=== PATIENT | male | born 1940 | race Caucasian/White ===

== ENCOUNTER 2021-10-14 09:02 | Emergency (ER) | payer MEDICARE, OTHER ==
--- NOTE | 2021-10-14 09:44 | ERPHSYRPT ---
- History of Present Illness Time Seen by Provider: 10/14/21 09:15 Source: patient Exam Limitations: no limitations Patient Subjective Stated Complaint: Pt states that for a couple of days he hs been feeling fatigued and has had a cough Triage Nursing Assessment: Pt brought self to the ER, hypertensive, denies pain, no difficulty walking to the room, pulses normal, skin n/w/d, doesn't appear to be in any distress Physician History: Patient is a 81-year-old male presents to our ED for evaluation of a cough and fatigue that has been ongoing for approximately 2 days. No associated nausea vomiting or diaphoresis. No rash. No diarrhea. No fever. Patient has been eating normally. No obvious sick contacts. Symptoms are mild to moderate in intensity. No specific worsening or improving factors. Patient denies chest pain and shortness of breath. He voices no other complaints or concerns at this time. Patient is vaccinated however he is requesting a Covid test. Timing/Duration: day(s) (2 days) Severity: moderate Modifying Factors: Improves With: nothing Associated Symptoms: denies symptoms Allergies/Adverse Reactions: No Known Drug Allergies Allergy (Verified 10/14/21 09:26) Home Medications: Amlodipine Besylate 5 mg [Norvasc 5 mg] 5 mg PO BID 10/14/21 [History] Clopidogrel Bisulfate 75 mg [PLAVIX 75 MG Tablet] 75 mg PO DAILY 10/14/21 [History] Empagliflozin [Jardiance] 10 mg PO DAILY 10/14/21 [History] Enalapril Maleate 20 mg PO BID 10/14/21 [History] Furosemide 20 mg [Lasix 20 mg] 20 mg PO DAILY 10/14/21 [History] Hydralazine HCl 50 mg PO BID 10/14/21 [History] Metformin HCl Xr 500 mg [Glucophage XR 500 MG] 500 mg PO BID 10/14/21 [History] Nebivolol HCl 20 mg PO DAILY 10/14/21 [History] Pravastatin Sodium 20 mg PO DAILY 10/14/21 [History] Zolpidem Tartrate 5 mg [Ambien 5 MG Tablet] 5 mg PO DAILY 10/14/21 [History] glyBURIDE [Glyburide] 5 mg PO BID 10/14/21 [History] Hx Tetanus, Diphtheria Vaccination/Date Given: Yes Travel Risk - International Travel Have you traveled outside of the country in past 3 weeks: No - Coronavirus Screening Are you exhibiting any of the following symptoms?: Yes Symptoms: Headaches/Body Aches/Fatigue Close contact with a COVID-19 positive Pt in past 14-21 Days: No - Vaccine Status Have you recieved a Covid-19 vaccination: Yes Rn Clinical Resource: Moderna - Vaccination Dates Date of 2cond Vaccination (if applicable): 02/18/2021 - Review of Systems Constitutional: No Symptoms, No Fever, No Chills Eyes: No Symptoms Ears, Nose, & Throat: No Symptoms Respiratory: No Symptoms, No Cough, No Dyspnea Cardiac: No Symptoms, No Chest Pain, No Edema, No Syncope Abdominal/Gastrointestinal: No Symptoms, No Abdominal Pain, No Nausea, No Vomiting, No Diarrhea Genitourinary Symptoms: No Symptoms, No Dysuria Musculoskeletal: No Symptoms, No Back Pain, No Neck Pain Skin: No Symptoms, No Rash Neurological: No Symptoms, No Dizziness, No Focal Weakness, No Sensory Changes Psychological: No Symptoms Endocrine: No Symptoms Hematologic/Lymphatic: No Symptoms Immunological/Allergic: No Symptoms All Other Systems: Reviewed and Negative - Past Medical History Pertinent Past Medical History: Yes Cardiac History: Hypertension Endocrine Medical History: Diabetes Type II - Past Surgical History Past Surgical History: No - Social History Smoking Status: Never smoker Exposure to second hand smoke: No Drug Use: none Patient Lives Alone: Yes - Nursing Vital Signs Nursing Vital Signs: Initial Vital Signs Temperature 99.0 F 10/14/21 09:10 Pulse Rate 80 10/14/21 09:10 Respiratory Rate 26 H 10/14/21 09:10 Blood Pressure 198/82 10/14/21 09:10 O2 Sat by Pulse Oximetry 94 L 10/14/21 09:10 Pain Scale Pain Intensity 0 - Physical Exam General Appearance: no apparent distress, alert Eye Exam: PERRL/EOMI, eyes nml inspection Ears, Nose, Throat Exam: normal ENT inspection, TMs normal, pharynx normal, moist mucous membranes Neck Exam: normal inspection, non-tender, supple, full range of motion Respiratory Exam: normal breath sounds, lungs clear, No respiratory distress Cardiovascular Exam: regular rate/rhythm, normal heart sounds, normal peripheral pulses Gastrointestinal/Abdomen Exam: soft, normal bowel sounds, No tenderness, No mass Back Exam: normal inspection, normal range of motion, No CVA tenderness, No vertebral tenderness Extremity Exam: normal inspection, normal range of motion, pelvis stable Neurologic Exam: alert, oriented x 3, cooperative, normal mood/affect, nml cerebellar function, nml station & gait, sensation nml, No motor deficits Skin Exam: normal color, warm, dry, No rash Lymphatic Exam: No adenopathy SpO2 Interpretation: normal SpO2: 93 O2 Delivery: Room Air - Course Nursing assessment & vital signs reviewed: Yes EKG Interpreted by Me: RATE (82), Sinus Rhythm, NORMAL AXIS, NORMAL INTERVALS (Prolonged MN interval at 255) - Radiology Exams Chest X-ray Interpretation: Teleradiologist Report (Portable chest does not completely include right costophrenic angle. Visualized lungs are clear. Heart not enlarged again with tortuous descending aorta. Bony thorax intact with mild osteopenia and degenerative changes. Nonacute Limited chest with chronic features.) Ordered Tests: Active Orders 24 hr Category Date Time Status Television Installer Helper STAT Care 10/14/21 09:35 Active EKG-ER Only STAT Care 10/14/21 09:34 Active IV Insertion STAT Care 10/14/21 09:34 Active Pulse Oximetry (ED) STAT Care 10/14/21 09:34 Active CHEST 1 VIEW (PORTABLE) Stat Exams 10/14/21 09:35 Completed CBC W DIFF Stat Lab 10/14/21 10:10 Completed CMP Stat Lab 10/14/21 10:10 Completed CULTURE,URINE Stat Lab 10/14/21 10:07 Received Manual Differential NC Stat Lab 10/14/21 10:10 Completed TROPONIN Q3H Lab 10/14/21 10:10 Completed TROPONIN Q3H Lab 10/14/21 12:45 Ordered TROPONIN Q3H Lab 10/14/21 15:45 Ordered TROPONIN Q3H Lab 10/14/21 18:45 Ordered TROPONIN Q3H Lab 10/14/21 21:45 Ordered UA W/RFX UR CULTURE Stat Lab 10/14/21 10:07 Completed Medication Summary Generic Name Dose Route Start Last Admin Trade Name Freq PRN Reason Stop Dose Admin Ceftriaxone Sodium/Dextrose 1 g in 50 mls @ 100 mls/hr 10/14/21 10:53 10/14/21 11:00 Rocephin 1 Gm-D5w 50 Ml Bag IV 10/14/21 11:22 100 mls/hr STAT STA 100 mls/hr Administration Discontinued Medications Generic Name Dose Route Start Last Admin Trade Name Alysa PRN Reason Stop Dose Admin Ceftriaxone Sodium/Dextrose Confirm 10/14/21 11:00 Rocephin 1 Gm-D5w 50 Ml Bag Administered 10/14/21 11:01 Dose 1 g in 50 mls @ ud IV .STK-MED ONE Lab/Rad Data: Laboratory Result Diagrams 10/14/21 10:10 10/14/21 10:10 Laboratory Results 10/14/21 10/14/21 10/14/21 Range/Units 10:10 10:10 10:10 WBC 6.2 (4.0-10.5) K/mm3 RBC 5.24 (4.1-5.6) M/mm3 Hgb 11.4 L (12.5-18.0) gm/dl Hct 38.0 L (42-50) % MCV 72.5 L (78-100) fl MCH 21.8 L (26-32) pg MCHC 30.0 L (32-36) g/dl RDW 16.7 H (11.5-14.0) % Plt Count 229 (150-450) K/mm3 MPV 10.1 (7.5-11.0) fl Sodium 137 (137-145) mmol/L Potassium 3.7 (3.5-5.1) mmol/L Chloride 101 (98-107) mmol/L Carbon Dioxide 25 (22-30) mmol/L Anion Gap 15.2 H (5-15) MEQ/L BUN 9 (9-20) mg/dL Creatinine 1.11 (0.66-1.25) mg/dL Estimated GFR > 60.0 ML/MIN Glucose 199 H (74-106) mg/dL Calcium 8.8 (8.4-10.2) mg/dL Total Bilirubin 0.70 (0.2-1.3) mg/dL AST 25 (17-59) U/L ALT 19 (0-50) U/L Alkaline Phosphatase 88 (38-126) U/L Troponin I < 0.012 (0.000-0.034) ng/mL Serum Total Protein 8.1 (6.3-8.2) g/dL Albumin 4.4 (3.5-5.0) g/dL Urine Color (YELLOW) Urine Appearance (CLEAR) Urine pH (5-6) Ur Specific [place] (1.005-1.025) Urine Protein (Negative) Urine Ketones (NEGATIVE) Urine Blood (0-5) Anurag/ul Urine Nitrite (NEGATIVE) Urine Bilirubin (NEGATIVE) Urine Urobilinogen (0-1) mg/dL Ur Leukocyte Esterase (NEGATIVE) Urine WBC (Auto) (0-5) /HPF Urine RBC (Auto) (0-2) /HPF U Epithel Cells (Auto) (FEW) /HPF Urine Bacteria (Auto) (NEGATIVE) /HPF Urine Culture Reflexed (NO) Urine Glucose (NEGATIVE) mg/dL 10/14/21 Range/Units 10:07 WBC (4.0-10.5) K/mm3 RBC (4.1-5.6) M/mm3 Hgb (12.5-18.0) gm/dl Hct (42-50) % MCV (78-100) fl MCH (26-32) pg MCHC (32-36) g/dl RDW (11.5-14.0) % Plt Count (150-450) K/mm3 MPV (7.5-11.0) fl Sodium (137-145) mmol/L Potassium (3.5-5.1) mmol/L Chloride (98-107) mmol/L Carbon Dioxide (22-30) mmol/L Anion Gap (5-15) MEQ/L BUN (9-20) mg/dL Creatinine (0.66-1.25) mg/dL Estimated GFR ML/MIN Glucose (74-106) mg/dL Calcium (8.4-10.2) mg/dL Total Bilirubin (0.2-1.3) mg/dL AST (17-59) U/L ALT (0-50) U/L Alkaline Phosphatase (38-126) U/L Troponin I (0.000-0.034) ng/mL Serum Total Protein (6.3-8.2) g/dL Albumin (3.5-5.0) g/dL Urine Color STRAW (YELLOW) Urine Appearance CLEAR (CLEAR) Urine pH 7.0 (5-6) Ur Specific [place] 1.003 (1.005-1.025) Urine Protein NEGATIVE (Negative) Urine Ketones NEGATIVE (NEGATIVE) Urine Blood NEGATIVE (0-5) Anurag/ul Urine Nitrite NEGATIVE (NEGATIVE) Urine Bilirubin NEGATIVE (NEGATIVE) Urine Urobilinogen NEGATIVE (0-1) mg/dL Ur Leukocyte Esterase TRACE (NEGATIVE) Urine WBC (Auto) 16-25 (0-5) /HPF Urine RBC (Auto) NONE (0-2) /HPF U Epithel Cells (Auto) NONE (FEW) /HPF Urine Bacteria (Auto) PACKED (NEGATIVE) /HPF Urine Culture Reflexed YES (NO) Urine Glucose 150 (NEGATIVE) mg/dL - Progress Progress: improved Progress Note: Patient reassessed. He feels well. No active weakness at this time. Urinalysis reveals a pyuria with bacteria. Patient is a diabetic. Patient received a dose of Rocephin in our ED. Patient received a prescription for Keflex to treat UTI. No indication for further work-up at this time. Outpatient Covid testing performed prior to discharge. Patient agrees to follow-up with Dr. Knight within 48 hours for evaluation. Portions of this note were created with voice recognition technology. There may be grammatical, spelling, punctuation or sound alike errors 10/14/21 11:03 Patient ambulated in our ED. Patient maintaining oxygen saturations 95% during ambulation and was asymptomatic. Ambulation oxygen level was assessed as patient appeared to be somewhat hypoxic at rest. Patient states he is ready for discharge. 10/14/21 11:12 10/14/21 11:13 Discussed with .: Duong Will see patient in: office Counseled pt/family regarding: lab results, diagnosis, need for follow-up, rad results - Departure Departure Disposition: Home Clinical Impression: Osteopenia, Degenerative arthritis, UTI (urinary tract infection), Generalized weakness Condition: Stable Critical Care Time: No Referrals: JENNIFER KNIGHT MD [Primary Care Provider] - Follow up/PCP as directed Prescriptions: Cephalexin Mh 500 mg [Keflex 500 mg] 500 mg PO QID 7 Days #28 cap
--- NOTE | 2021-10-14 10:13 | XRAY ---
Indication: Cough. Comparison: March 30, 2011. Portable chest does not completely include right costophrenic angle. Visualized lungs clear. Heart not enlarged again with tortuous descending aorta. Bony thorax intact with mild osteopenia and degenerative changes. Impression: Nonacute limited chest with chronic features.
[2021-10-14 10:19] LABS: Hemoglobin 11.4 gm/dl (12.5-18.0); Mean Cell Volume 72.5 fl (78-100); Mean Corpuscular Hemoglobin 21.8 pg (26-32); Mean Platelet Volume 10.1 fl (7.5-11.0); Platelet Count 229 K/mm3 (150-450); Red Blood Count 5.24 M/mm3 (4.1-5.6); Red Cell Distribution Width 16.7 % (11.5-14.0); White Blood Count 6.2 K/mm3 (4.0-10.5)
[2021-10-14 10:22] LABS: Appearance CLEAR (CLEAR); Bacteria PACKED /HPF (NEGATIVE); Bilirubin NEGATIVE (NEGATIVE); Blood NEGATIVE Ery/ul (0-5); Glucose 150 mg/dL (NEGATIVE); Ketones NEGATIVE (NEGATIVE); Leukocyte Esterase TRACE (NEGATIVE); Nitrite NEGATIVE (NEGATIVE); Protein,Urine Dip NEGATIVE (Negative); Specific Gravity 1.003 (1.005-1.025); Urobilinogen NEGATIVE mg/dL (0-1)
[2021-10-14 10:28] LABS: ALBUMIN 4.4 g/dL (3.5-5.0); ALKALINE PHOSPHATASE 88 U/L (38-126); ANION GAP 15.2 MEQ/L (5-15); BLOOD UREA NITROGEN 9 mg/dL (9-20); CHLORIDE 101 mmol/L (98-107); Calcium 8.8 mg/dL (8.4-10.2); Carbon Dioxide 25 mmol/L (22-30); Creatinine 1 1.11 mg/dL (0.66-1.25); EST GLOMERULAR FILTRATION RATE > 60.0 ML/MIN; Glucose 199 mg/dL (74-106); Potassium 3.7 mmol/L (3.5-5.1); SGOT/AST 25 U/L (17-59); SGPT/ALT 19 U/L (0-50); SODIUM 137 mmol/L (137-145); Total Protein 8.1 g/dL (6.3-8.2)
[2021-10-14] MEDS ORDERED: ROCEPHIN 1 Gm-D5w 50 ml Bag** 1 G/50 ML IVPB IV STA (10:53)
[2021-10-14] MEDS ORDERED: ROCEPHIN 1 Gm-D5w 50 ml Bag** 1 G/50 ML IVPB IV ONE (11:00)
[2021-10-14 11:52] LABS: ANISOCYTOSIS 1+; BAND 1 % (0.0-2.0); Eosinophil 1 % (0.00-3.0); Hypochromia 1+; Lymphocytes 24 % (24-44); Microcytosis 1+; Monocyte 2 % (0.0-12.0); Neutrophils 72 % (36.-66.); Platelet Estimate NORMAL (NORMAL); Polychromasia 1+; Total Cells Counted 100
== END 2021-10-14 11:18 | disposition home or self-care (01) ==
LOC: ED 09:02
DX: N39.0 Urinary tract infection, site not specified (principal); R53.83 Other fatigue; R05.9 Cough, unspecified; Z79.01 Long term (current) use of anticoagulants; E11.9 Type 2 diabetes mellitus without complications; Z79.84 Long term (current) use of oral hypoglycemic drugs; I10 Essential (primary) hypertension; R53.1 Weakness; M85.80 Other specified disorders of bone density and structure, unspecified site; M19.91 Primary osteoarthritis, unspecified site
CPT/HCPCS: 36000; 36415; 71045; 80053; 81001; 84484; 85025; 87086; 93005; 93041; 94760; 99284; U0003; 87077; 87186; J0696

== ENCOUNTER 2022-04-25 10:06 | Emergency (ER) | payer MEDICARE, OTHER ==
[2022-04-25] MEDS ORDERED: Sodium Chloride 0.9% 1000 ML 1,000 ML IV SCH (10:15)
[2022-04-25] MEDS ORDERED: Sodium Chloride 0.9% 1000 ML 0 ML ONE (10:26)
[2022-04-25 10:36] LABS: Absolute Neutrophil Ct (ANC) 3.82 x10^3/uL (1.4-6.9); Basophil (Absolute #) 0.04 x10^3/uL (0-0.4); Eosinophil (Absolute #) 0 x10^3/uL (0-0.5); Hematocrit 38.4 % (42-50); Hemoglobin 10.9 g/dL (12.5-18.0); Lymphocytes % 12.3 % (24.0-44.0); Mean Cell Volume 71.4 fL (78-100); Mean Corpuscular Hemoglobin 20.3 pg (26-32); Mean Corpuscular Hgb Concent. 28.4 g/dL (32-36); Mean Platelet Volume 11.1 fL (7.5-11.0); Monocyte (Absolute #) 0.89 x10^3/uL (0.0-1.3); Monocytes % 15.7 % (0.0-12.0); Neutrophil % 67.3 % (36.0-66.0); Platelet Count 218 x10^3/uL (150-450); Red Blood Count 5.38 x10^6/uL (4.1-5.6); Red Cell Distribution Width 17.9 % (11.5-14.0); White Blood Count 5.7 x10^3/uL (4.0-10.5)
[2022-04-25 10:42] LABS: Mucus SLIGHT /HPF (NEGATIVE)
[2022-04-25 10:44] LABS: Appearance CLEAR (CLEAR); Bilirubin SMALL (NEGATIVE); Glucose 500 mg/dL (NEGATIVE); Ketones NEGATIVE (NEGATIVE); RBC NEGATIVE Ery/ul (0-5)
--- NOTE | 2022-04-25 10:44 | XRAY ---
Indication: Short of breath. Comparison: October 14, 2021. Portal chest remains hyperinflated. No focal infiltrate, consolidation, or large effusion. Heart not enlarged. Bony thorax intact again with mild osteopenia and degenerative changes. Impression: Nonacute hyperinflated chest.
[2022-04-25 10:45] LABS: Dipstick done @ ? MAIN LAB; Nitrite NEGATIVE (NEGATIVE); Ph 5.5 (5-6); Protein,Urine Dip >=300 (Negative); Urine Cultured Indicated? NO; Urobilinogen 0.2 mg/dL (0-1)
[2022-04-25 10:51] LABS: ALBUMIN 4.2 g/dL (3.5-5.0); ANION GAP 19.5 MEQ/L (5-15); BILIRUBIN,TOTAL 0.8 mg/dL (0.2-1.3); Calcium 8.7 mg/dL (8.4-10.2); Creatinine 1 2.01 mg/dL (0.66-1.25); EST GLOMERULAR FILTRATION RATE 34.1 ML/MIN; INR 1.26 (0.8-3.0); PROTIME 13.1 SECONDS (9.4-12.5); PTT 25.6 SECONDS (25.1-36.5); Total Protein 7.8 g/dL (6.3-8.2)
[2022-04-25 10:58] LABS: D-DIMER QUANTITATIVE 10.04 ng/mL (0.0-0.50)
[2022-04-25] MEDS ORDERED: Furosemide 100mg/10 ml Vial IV ONE (11:09)
[2022-04-25] MEDS ORDERED: Furosemide 100mg/10 ml Vial ONE (11:17)
--- NOTE | 2022-04-25 11:23 | ERPHSYRPT ---
- History of Present Illness Time Seen by Provider: 04/25/22 10:20 Source: patient, EMS Exam Limitations: no limitations Patient Subjective Stated Complaint: SOB Triage Nursing Assessment: Patient brought back to ED via EMS and transferred to bed with assist of 2. Patient A+O X3. Patient's skin pink, warm and dry. Patient complains of SOB for the past two weeks that has gotten worse today. EMS arrived and stated patient's O2 on room air was low 80s and placed on O2 at 5 liters on scene. Patient complains of productive cough with thin white mucus. Lungs clear a/p adonay. BLE swelling noted. Physician History: Patient is an 81-year-old white male who is been sick for 2 weeks with increasing shortness of breath. Today there was a marked increase in his shortness of breath EMS found him with room air O2 sat of 80 in the 80s. They gave him 5 L nasal cannula he went up to 92% he is on Lasix but denies any history of CHF he is on no home O2 and has had no chest pain. He has had no cough until a slight cough today. He is had no fever chills or sweats. Timing/Duration: week(s) (2) Activities at Onset: activity Severity of Dyspnea-Max: severe Severity of Dyspnea-Current: moderate Possible Cause: occasional episodes Modifying Factors: Improves With: oxygen Associated Symptoms: cough, edema, weakness, ankle swelling Allergies/Adverse Reactions: No Known Drug Allergies Allergy (Verified 04/25/22 10:10) Home Medications: Amlodipine Besylate 5 mg [Norvasc 5 mg] 5 mg PO BID 10/14/21 [History] Clopidogrel Bisulfate [PLAVIX 75 MG Tablet] 75 mg PO DAILY 10/14/21 [History] Empagliflozin [Jardiance] 10 mg PO DAILY 10/14/21 [History] Enalapril Maleate 20 mg PO BID 10/14/21 [History] Furosemide 20 mg [Lasix 20 mg] 20 mg PO DAILY 10/14/21 [History] Hydralazine HCl 50 mg PO BID 10/14/21 [History] Metformin HCl Xr 500 mg [Glucophage XR 500 MG] 500 mg PO BID 10/14/21 [History] Nebivolol HCl 20 mg PO DAILY 10/14/21 [History] Pravastatin Sodium 20 mg PO DAILY 10/14/21 [History] Zolpidem Tartrate 5 mg [Ambien 5 MG Tablet] 5 mg PO DAILY 10/14/21 [History] glyBURIDE [Glyburide] 5 mg PO BID 10/14/21 [History] Hx Tetanus, Diphtheria Vaccination/Date Given: Yes Hx Influenza Vaccination/Date Given: Yes Hx Pneumococcal Vaccination/Date Given: Yes Immunizations Up to Date: Yes Travel Risk - International Travel Have you traveled outside of the country in past 3 weeks: No - Coronavirus Screening Close contact with a COVID-19 positive Pt in past 14-21 Days: No - Vaccine Status Have you recieved a Covid-19 vaccination: Yes Crystalizer Tender: Moderna - Vaccination Dates Date of 2cond Vaccination (if applicable): 02/18/2021 - Review of Systems Constitutional: No Fever, No Chills Eyes: No Symptoms Ears, Nose, & Throat: No Symptoms Respiratory: Dyspnea, Dyspnea on Exertion (BASS), No Cough Cardiac: Edema, No Chest Pain, No Syncope Abdominal/Gastrointestinal: No Abdominal Pain, No Nausea, No Vomiting, No Diarrhea Genitourinary Symptoms: No Dysuria Musculoskeletal: No Back Pain, No Neck Pain Skin: No Rash Neurological: No Dizziness, No Focal Weakness, No Sensory Changes Psychological: No Symptoms Endocrine: No Symptoms All Other Systems: Reviewed and Negative - Past Medical History Pertinent Past Medical History: No Cardiac History: Hypertension Endocrine Medical History: Diabetes Type II - Past Surgical History Past Surgical History: No - Social History Smoking Status: Never smoker Exposure to second hand smoke: No Drug Use: none Patient Lives Alone: No - Nursing Vital Signs Nursing Vital Signs: Initial Vital Signs Temperature 98.5 F 04/25/22 10:13 Pulse Rate 95 H 04/25/22 10:13 Respiratory Rate 22 04/25/22 10:13 O2 Sat by Pulse Oximetry 92 L 04/25/22 10:13 Pain Scale Pain Intensity 0 - Physical Exam General Appearance: moderate distress, alert Eye Exam: PERRL/EOMI Neck Exam: normal inspection, supple Respiratory Exam: respiratory distress, airway intact, diminished breath sounds Cardiovascular/Chest Exam: normal heart sounds, regular rate/rhythm Abdominal/Gastrointestinal Exam: soft, No tenderness, No distention, No mass Extremity Exam: non-tender, normal range of motion, normal inspection, no calf tenderness, no pedal edema Neurologic Exam: alert, oriented x 3, cooperative, environmental laboratory technician II-XII nml as tested, sensation nml, No motor deficits Skin Exam: normal color, warm, No dry Lymphatic Exam: adenopathy SpO2 Interpretation: hypoxic, O2 applied SpO2: 92 O2 Delivery: Room Air - Course Nursing assessment & vital signs reviewed: Yes EKG Interpreted by Me: RATE (101), Other (Patient has a junctional tachycardia with a right bundle branch block and a slightly prolonged QT interval.) - Radiology Exams Chest X-ray Interpretation: Other (Chest x-ray was interpreted by the radiologist as nonacute with hyperinflation) Ordered Tests: Active Orders 24 hr Category Date Time Status EKG-ER Only STAT Care 04/25/22 10:10 Active IV Insertion STAT Care 04/25/22 10:10 Active CHEST 1 VIEW (PORTABLE) Stat Exams 04/25/22 10:12 Completed AMYLASE Stat Lab 04/25/22 10:20 Completed CBC W DIFF Stat Lab 04/25/22 10:20 Completed CMP Stat Lab 04/25/22 10:20 Completed D-DIMER QUANTITATIVE Stat Lab 04/25/22 10:20 Completed LIPASE Stat Lab 04/25/22 10:20 Completed Lactic Acid Stat Lab 04/25/22 10:25 Completed MAGNESIUM Stat Lab 04/25/22 10:20 Completed NT PRO BNP Stat Lab 04/25/22 10:20 Completed PROTIME WITH INR Stat Lab 04/25/22 10:20 Completed PTT Stat Lab 04/25/22 10:20 Completed TROPONIN Q3H Lab 04/25/22 10:20 Completed TROPONIN Q3H Lab 04/25/22 13:15 Ordered TROPONIN Q3H Lab 04/25/22 16:15 Ordered TROPONIN Q3H Lab 04/25/22 19:15 Ordered TROPONIN Q3H Lab 04/25/22 22:15 Ordered UA W/RFX CULTURE Stat Lab 04/25/22 10:33 Completed Medication Summary Generic Name Dose Route Start Last Admin Trade Name Freq PRN Reason Stop Dose Admin Sodium Chloride 1,000 mls @ 50 mls/hr 04/25/22 10:15 Sodium Chloride 0.9% 1000 Ml IV 05/25/22 10:14 .Q20H MILLICENT Discontinued Medications Generic Name Dose Route Start Last Admin Trade Name Freq PRN Reason Stop Dose Admin Furosemide 80 mg 04/25/22 11:09 Furosemide 100 Mg/10 Ml Vial IV 04/25/22 11:10 STAT ONE Furosemide Confirm 04/25/22 11:17 Furosemide 100 Mg/10 Ml Vial Administered 04/25/22 11:18 Dose 100 mg .ROUTE .STK-MED ONE Lab/Rad Data: Laboratory Result Diagrams 04/25/22 10:20 04/25/22 10:20 Laboratory Results 04/25/22 04/25/22 04/25/22 Range/Units 10:33 10:25 10:20 WBC (4.0-10.5) x10^3/uL RBC (4.1-5.6) x10^6/uL Hgb (12.5-18.0) g/dL Hct (42-50) % MCV (78-100) fL MCH (26-32) pg MCHC (32-36) g/dL RDW (11.5-14.0) % Plt Count (150-450) x10^3/uL MPV (7.5-11.0) fL Gran % (36.0-66.0) % Immature Gran % (Auto) (0.00-0.4) % Nucleat RBC Rel Count (0.00-0.1) % Eos # (Auto) (0-0.5) x10^3/uL Immature Gran # (Auto) (0.00-0.03) x10^3u/L Absolute Lymphs (auto) (1.0-4.6) x10^3/uL Absolute Monos (auto) (0.0-1.3) x10^3/uL Absolute Nucleated RBC (0.00-0.01) x10^3u/L Lymphocytes % (24.0-44.0) % Monocytes % (0.0-12.0) % Eosinophils % (0.00-5.0) % Basophils % (0.0-0.4) % Absolute Granulocytes (1.4-6.9) x10^3/uL Basophils # (0-0.4) x10^3/uL PT (9.4-12.5) SECONDS INR (0.8-3.0) APTT (25.1-36.5) SECONDS D-Dimer (0.0-0.50) ng/mL Sodium (137-145) mmol/L Potassium (3.5-5.1) mmol/L Chloride (98-107) mmol/L Carbon Dioxide (22-30) mmol/L Anion Gap (5-15) MEQ/L BUN (9-20) mg/dL Creatinine (0.66-1.25) mg/dL Estimated GFR ML/MIN Glucose (74-106) mg/dL Lactic Acid 3.4 H (0.4-2.0) Calcium (8.4-10.2) mg/dL Magnesium (1.6-2.3) mg/dL Total Bilirubin (0.2-1.3) mg/dL AST (17-59) U/L ALT (0-50) U/L Alkaline Phosphatase (38-126) U/L Troponin I 0.164 H* (0.000-0.034) ng/mL NT-Pro-B Natriuret Pep (0-1800) pg/mL Serum Total Protein (6.3-8.2) g/dL Albumin (3.5-5.0) g/dL Amylase (30-110) U/L Lipase (23-300) U/L Urinalys Dipstick Clnc MAIN LAB Urine Color YELLOW (YELLOW) Urine Appearance CLEAR (CLEAR) Urine pH 5.5 (5-6) Ur Specific [place] 1.030 (1.005-1.025) POC Urine Protein Conf >=300 (Negative) Urine Ketones NEGATIVE (NEGATIVE) Urine Nitrite NEGATIVE (NEGATIVE) Urine Bilirubin SMALL (NEGATIVE) Urine Urobilinogen 0.2 (0-1) mg/dL Urine Leukocytes NEGATIVE (NEGATIVE) Urine WBC (Auto) NONE (0-5) /HPF Urine RBC (Auto) NONE (0-2) /HPF U Epithel Cells (Auto) NONE (FEW) /HPF Urine Bacteria (Auto) NONE (NEGATIVE) /HPF Urine RBC NEGATIVE (0-5) Anurag/ul Urine Mucus (Auto) SLIGHT (NEGATIVE) /HPF Ur Culture Indicated? NO Urine Glucose 500 (NEGATIVE) mg/dL 04/25/22 04/25/22 04/25/22 Range/Units 10:20 10:20 10:20 WBC 5.7 (4.0-10.5) x10^3/uL RBC 5.38 (4.1-5.6) x10^6/uL Hgb 10.9 L (12.5-18.0) g/dL Hct 38.4 L (42-50) % MCV 71.4 L (78-100) fL MCH 20.3 L (26-32) pg MCHC 28.4 L (32-36) g/dL RDW 17.9 H (11.5-14.0) % Plt Count 218 (150-450) x10^3/uL MPV 11.1 H (7.5-11.0) fL Gran % 67.3 H (36.0-66.0) % Immature Gran % (Auto) 4.0 H (0.00-0.4) % Nucleat RBC Rel Count 0.0 (0.00-0.1) % Eos # (Auto) 0 (0-0.5) x10^3/uL Immature Gran # (Auto) 0.23 H (0.00-0.03) x10^3u/L Absolute Lymphs (auto) 0.70 L (1.0-4.6) x10^3/uL Absolute Monos (auto) 0.89 (0.0-1.3) x10^3/uL Absolute Nucleated RBC 0.00 (0.00-0.01) x10^3u/L Lymphocytes % 12.3 L (24.0-44.0) % Monocytes % 15.7 H (0.0-12.0) % Eosinophils % 0.0 (0.00-5.0) % Basophils % 0.7 (0.0-0.4) % Absolute Granulocytes 3.82 (1.4-6.9) x10^3/uL Basophils # 0.04 (0-0.4) x10^3/uL PT 13.1 H (9.4-12.5) SECONDS INR 1.26 (0.8-3.0) APTT 25.6 (25.1-36.5) SECONDS D-Dimer 10.04 H* (0.0-0.50) ng/mL Sodium 138 (137-145) mmol/L Potassium 4.0 (3.5-5.1) mmol/L Chloride 102 (98-107) mmol/L Carbon Dioxide 21 L (22-30) mmol/L Anion Gap 19.5 H (5-15) MEQ/L BUN 35 H (9-20) mg/dL Creatinine 2.01 H (0.66-1.25) mg/dL Estimated GFR 34.1 ML/MIN Glucose 208 H (74-106) mg/dL Lactic Acid (0.4-2.0) Calcium 8.7 (8.4-10.2) mg/dL Magnesium 2.0 (1.6-2.3) mg/dL Total Bilirubin 0.80 (0.2-1.3) mg/dL AST 147 H (17-59) U/L ALT 70 H (0-50) U/L Alkaline Phosphatase 83 (38-126) U/L Troponin I (0.000-0.034) ng/mL NT-Pro-B Natriuret Pep 87816 H (0-1800) pg/mL Serum Total Protein 7.8 (6.3-8.2) g/dL Albumin 4.2 (3.5-5.0) g/dL Amylase 74 (30-110) U/L Lipase 136 (23-300) U/L Urinalys Dipstick Clnc Urine Color (YELLOW) Urine Appearance (CLEAR) Urine pH (5-6) Ur Specific [place] (1.005-1.025) POC Urine Protein Conf (Negative) Urine Ketones (NEGATIVE) Urine Nitrite (NEGATIVE) Urine Bilirubin (NEGATIVE) Urine Urobilinogen (0-1) mg/dL Urine Leukocytes (NEGATIVE) Urine WBC (Auto) (0-5) /HPF Urine RBC (Auto) (0-2) /HPF U Epithel Cells (Auto) (FEW) /HPF Urine Bacteria (Auto) (NEGATIVE) /HPF Urine RBC (0-5) Anurag/ul Urine Mucus (Auto) (NEGATIVE) /HPF Ur Culture Indicated? Urine Glucose (NEGATIVE) mg/dL - Progress Progress: unchanged Air Movement: fair Blood Culture(s) Obtained: No Antibiotics given: No Discussed with Dr.: Watters (Discussed with Dr. Knight patient will be transferred to [facility] where his clean rice grader and reel tender can attend him. Spoke with Dr. Kanu Chan who agreed to accept him at [facility].) - Departure Departure Disposition: Transfer (Patient transferred to [facility] hospital Dr. Chan accepting) Clinical Impression: Congestive heart failure Condition: Fair Critical Care Time: No Referrals: JENNIFER KNIGHT MD [Primary Care Provider] - Follow up/PCP as directed Instructions: Heart Failure, Heart Failure, Adult
[2022-04-25 12:06] LABS: Slide Review 1 YES
[2022-04-25 12:40] VITALS: PULSE 83
[2022-04-25 13:06] VITALS: BP 157/101; O2SAT 92
== END 2022-04-25 13:39 | disposition short-term general hospital (02) ==
LOC: ED 10:06
DX: I50.9 Heart failure, unspecified (principal); R06.02 Shortness of breath; R60.0 Localized edema; R53.1 Weakness; R09.02 Hypoxemia; I10 Essential (primary) hypertension; E11.9 Type 2 diabetes mellitus without complications; Z79.84 Long term (current) use of oral hypoglycemic drugs; Z79.02 Long term (current) use of antithrombotics/antiplatelets; Z79.899 Other long term (current) drug therapy
CPT/HCPCS: 36000; 36415; 71045; 80053; 81015; 82150; 83605; 83690; 83735; 83880; 84484; 85025; 85379; 85610; 85730; 93005; 96374; 99285; J1940